=== PATIENT | male | born 1985 | race Caucasian/White ===

== ENCOUNTER 2017-09-22 08:23 | Emergency (ER) | payer OTHER ==
[~2017-09-22] VITALS: Ht 180.3 cm; Wt 86.2 kg
[2017-09-22] MEDS ORDERED: Veetids 500500 MG PO (09:18)
== END 2017-09-22 09:29 | disposition home or self-care (01) ==
LOC: ER 08:23
DX: J02.0 Streptococcal pharyngitis (principal); F17.200 Nicotine dependence, unspecified, uncomplicated; Z91.048 Other nonmedicinal substance allergy status
CPT/HCPCS: 87430; 99282

== ENCOUNTER 2019-05-30 09:43 | Emergency (ER) | payer OTHER ==
[~2019-05-30] VITALS: Ht 180.3 cm; Wt 81.7 kg
[~2019-05-30 09:43] MED LIST: Veetids 500500 MG PO
[2019-05-30] MEDS ORDERED: NAPR550 PO (11:21)
== END 2019-05-30 11:32 | disposition home or self-care (01) ==
LOC: ER 09:43
DX: S93.402A Sprain of unspecified ligament of left ankle, initial encounter (principal); S50.02XA Contusion of left elbow, initial encounter; F17.200 Nicotine dependence, unspecified, uncomplicated; Z91.048 Other nonmedicinal substance allergy status; V49.9XXA Car occupant (driver) (passenger) injured in unspecified traffic accident, initial encounter
CPT/HCPCS: 29515; 73080; 73590; 99283-25; L1906

== ENCOUNTER → 2022-01-07 | Outpatient (CLI) | payer OTHER ==
[~2022-01-07] MED LIST changes: +NAPR550 PO
== END | disposition home or self-care (01) ==
LOC: LAB SHORT 13:17 → LAB 13:17
DX: S31.119A Laceration without foreign body of abdominal wall, unspecified quadrant without penetration into peritoneal cavity, initial encounter (principal)
CPT/HCPCS: 87070; 87205